=== PATIENT | male | born 1960 | race Caucasian/White ===

== ENCOUNTER 2018-09-15 16:22 | Emergency (ER) | payer OTHER, BC, SELFPAY ==
[2018-09-15 16:23] VITALS: BP 157/90; PULSE 60; RESP 18; TEMP 36.7; O2SAT 97; BMI 30.6
--- NOTE | 2018-09-15 16:38 | CT_ITS ---
STUDY: CT BRAIN WITHOUT CONTRAST REASON FOR EXAM: Male, 58 years old. Increasing headache for 2 months. Prior history of CVA and 2016. RADIATION DOSAGE (If Supplied By Facility): CTDIvol = ( 44.99 ) mGy, DLP = ( 846.73 ) mGycm TECHNIQUE: Transaxial CT imaging of the brain was performed without administration of intravenous contrast material. Individualized dose optimization techniques were used for this CT. COMPARISON: None. FINDINGS: Normal soft tissue structures. Normal calvarium. Normal size ventricles and extra-axial spaces for the patient's age. Normal white matter tracts of the cerebral hemispheres. 1 infarct inferior to the anterior horn of the right lateral ventricle Normal brainstem. Normal cerebellum. There is no intracranial hemorrhage. There are no findings of an acute ischemic infarction. Normal visualized paranasal sinuses. CT/Brain/Head without Contrast IMPRESSION: No acute intracranial findings. Negative for hemorrhage, hematoma or mass density. Negative for demarcation of the new nonhemorrhagic infarct zone. Minimal involutional changes. 1 old lacunar infarcts inferior to the anterior horn of the right lateral ventricle which is probably in the colliculus of the caudate nucleus or cingulate gyrus. Normal paranasal sinuses and temporal bones. Electronically Signed: Michaelle Price MD at 17:29 EST , Service support ,
--- NOTE | 2018-09-15 16:39 | ED.VISSUMM ---
- ER Visit Summary Date of Service: 09/15/18 Chief Complaint: Headache History of Present Illness: The patient is a 58 M who presents to the emergency department with approximately 1.5 months of a headache. He describes it as a left-sided parietal region and sometimes pressure sometimes sharp sometimes both. He states today it is both. He states that the left side of his face below his eye and onto the cheek and chin feels duller than the right. He denies any head trauma. He denies any sinus issues. She denies any recent URIs. He is on Eliquis for history of A. fib as well as 3 years ago had a right-sided stroke with left-sided deficits. He received TPA and had good improvement of his deficits. He has a primary care physician he states in [place] and his neurologist is with [facility] in [place]. No recent falls. Denies hitting his head. He is tried Excedrin Migraine and Tylenol with minimal to no relief. Patient notes his blood pressure is elevated for him. Physical Examination: Afebrile vital signs are stable blood pressure 157/90 Gen: Well-nourished well-developed Head: Normocephalic atraumatic Eyes: Perrl EOMI ENT: TMs clear no rhinorrhea moist mucous membranes Neck: Supple no lymphadenopathy no JVD nontender CVS: Regular rate rhythm no murmurs normal S1-S2 Respiratory: No distress clear to auscultation bilaterally chest nontender Abdomen: Soft nontender nondistended normal bowel sounds no masses Back: Nontender Extremity: Nontender no edema Skin: Normal color no rash Neuro: alert orientated ?3 CN II-XII intact normal strength reflexes gait cerebellar patient reports dullness to touch on the left V2 V3 region Psych: Normal affect normal mood Test Results: CT the brain shows no acute findings. CBC and chemistries were normal. Emergency Department Course and Treatment: Patient received Toradol and Imitrex. He states that the pain in the parietal region of his head is better but not fully resolved. Patient has an appointment in November with his neurologist in the [facility]. He is now living down here. I will provide him with local neurology. I will write for a few Toradol. Patient does note that the pain is not severe on most days so even though he is on Eliquis as long as he is not taking the Toradol regularly I think this would be okay to use. Impression: 1. Headache This note was generated with [employer] dictation software. It may contain incorrect words, spelling, and punctuation that were not noted in review of the chart prior to signing ED Disposition - Plan for ED Patient: Disposition: Home or Assisted Living Instructions: ED Cephalgia Unspecified Prescriptions: Ketorolac [Toradol] 10 mg PO Q6H PRN #12 tab PRN Reason: Headache Referrals: Jose De Jesus Ruiz MD [STAFF PHYSICIAN] - (call in the am to arrange follow up)
--- NOTE | 2018-09-15 16:42 | ED.DCSUM_ITS ---
- ER Visit Summary Date of Service: 09/15/18 Chief Complaint: Headache History of Present Illness: The patient is a 58 M who presents to the emergency department with approximately 1.5 months of a headache. He describes it as a left-sided parietal region and sometimes pressure sometimes sharp sometimes bot h. He states today it is both. He states that the left side of his face below his eye and onto the cheek and chin feels duller than the right. He denies any head trauma. He denies any sinus issues. She denies any recent URIs. He is on Eliquis for history of A. fib as well as 3 years ago had a right-sided stroke with left-sided deficits. He received TPA and had good improvement of his deficits. He has a primary care physician he states in [place] and his neurologist is with [facility] in [place]. No recent falls. Denies hitting his head. He is tried Excedrin Migraine and Tylenol with minimal to no relief. Patient notes his blood pressure is elevated for him. Physical Examination: Afebrile vital signs are stable blood pressure 157/90 Gen: Well-nourished well-developed Head: Normocephalic atraumatic Eyes: Perrl EOMI ENT: TMs clear no rhinorrhea moist mucous membranes Neck: Supple no lymphadenopathy no JVD nontender CVS: Regular rate rhythm no murmurs normal S1-S2 Respiratory: No distress clear to auscultation bilaterally chest nontender Abdomen: Soft nontender nondistended normal bowel sounds no masses Back: Nontender Extremity: Nontender no edema Skin: Normal color no rash Neuro: alert orientated ?3 CN II-XII intact normal strength reflexes gait cerebellar patient reports dullness to touch on the left V2 V3 region Psych: Normal affect normal mood Test Results: CT the brain shows no acute findings. CBC and chemistries were normal. Emergency Department Course and Treatment: Patient received Toradol and Imitrex. He states that the pain in the parietal region of his head is better but not fully resolved. Patient has an appointment in November with his neurologist in the [facility]. He is now living down here. I will provide him with local neurology. I will write for a few Toradol. Patient does note that the pain is not severe on most days so even though he is on Eliquis as long as he is not taking the Toradol regularly I think this would be okay to use. Impression: 1. Headache This note was generated with [employer] dictation software. It may contain incorrect words, spelling, and punctuation that were not noted in review of the chart prior to signing ED Disposition - Plan for ED Patient: Disposition: Home or Assisted Living Instructions: ED Cephalgia Unspecified Prescriptions: Ketorolac [Toradol] 10 mg PO Q6H PRN #12 tab PRN Reason: Headache Referrals: Jose De Jesus Ruiz MD [STAFF PHYSICIAN] - (call in the am to arrange follow up)
[2018-09-15 17:08] LABS: Anion Gap 10 (5-15); BUN 15 mg/dL (7-18); BUN/Creat Ratio 14.9 RATIO (10-20); Calcium,Total 8.8 mg/dL (8.5-10.1); Chloride 113 mmol/L (98-107); Creatinine, Serum 1.01 mg/dL (0.70-1.30); EST Glomerular Filtration Rate 80 mL/min (>60); Est Glom Filt Rate - Afr Amer 97 mL/min (>60); Estimated Creatinine Clearance 85.37 ml/min; Glucose 129 mg/dL (74-106); Potassium 3.5 mmol/L (3.5-5.1); Sodium Level 143 mmol/L (136-145)
[2018-09-15 17:11] LABS: Absolute Lymphocyte Count 2.06 X10^3/ul (0.83-4.51); Absolute Neutrophil Count 3.5 X10^3/uL (2.0-7.7); Basophil# 0.02 X10^3/uL; Basophil% 0.3 % (0-1); Eosinophil# 0.09 X10^3/uL; Eosinophils% 1.4 % (0-5); Hematocrit 42.5 % (40-54); Lymphocyte # 2.06 X10^3/ul (4.0); Lymphocyte % 32.7 % (19-41); Mean Corp Hgb Conc 35.3 g/gl (32-36); Mean Corpuscular Hgb 32.2 pg (27.0-32.0); Mean Corpuscular Volume 91.2 fL (80-94); Mean Platelet Vol. 10.6 fl (6.2-12.0); Monocyte# 0.56 X10^3/uL; Monocyte% 8.9 % (0-10); Neutrophil # 3.53 X10^3/uL (2.7-7.7); Neutrophil % 56.1 % (47-70); Platelet Count 182 K/mm3 (150-450); RBC Distribution Width CV 12.3 % (11.6-14.6); RBC Distribution Width SD 40.5 fl (35.1-43.9); Red Blood Count 4.66 M/mm3 (4.6-6.2); White Blood Count 6.3 K/mm3 (4.4-11.0)
[2018-09-15 17:23] LABS: POSITIVE COUNT NO; POSITIVE DIFFERENTIAL NO; POSITIVE MORPHOLOGY NO
[2018-09-15] MEDS: Ketorolac 30 MG/ML Syringe IV (18:02)
[2018-09-15] MEDS: SUMAtriptan 6 MG/0.5 ML Vial SC (18:04)
[2018-09-15 20:02] VITALS: BP 163/85; PULSE 56; RESP 16; O2SAT 97
== END 2018-09-15 20:03 | disposition home or self-care (01) ==
PROVIDERS: Emergency Provider Emergency Medicine
DX: R51 Headache (principal); I48.91 Unspecified atrial fibrillation; Z79.01 Long term (current) use of anticoagulants; I69.354 Hemiplegia and hemiparesis following cerebral infarction affecting left non-dominant side; Z87.891 Personal history of nicotine dependence
CPT/HCPCS: 70450; 80048; 85025; 96372; 96374; 99284; A4216; J3030

== ENCOUNTER 2021-09-05 17:00 | Outpatient (RCR) | payer OTHER, BC, SELFPAY ==
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
--- NOTE | 2021-11-12 10:56 | HP.PT.NRP ---
MAYTE BULLOCK was seen in my office for initial evaluation on 08/16/21. The following Plan of Care was established for this patient: Initial Frequency: 2x /Week Initial Duration: 4 Weeks Patient/Client Instruction: Educate patient on: Condition, Plan of Care For the Purpose of:: To decrease pain, To increase ROM, To improve muscle performance and motor function, To improve ability to perform ADL's, To increase tolerance to activity/condition/position, To improve ability of physical actions for home/community/work/leisure, To improve health of tissue, To decrease soft tissue restriction, To increase flexibility/ROM, To prevent re-injury Therapeutic Exercise to Include: Strength training, Endurance training, Postural training, Flexibilty training, Active ROM, Dynamic Lumbar Stabilization For the Purpose of:: To decrease pain, To increase ROM, To improve muscle performance and motor function, To increase tolerance to activity/condition/position, To improve ability of physical actions for home/community/work/leisure, To improve gait and locomotor functions, To improve health of tissue, To decrease soft tissue restriction, To increase flexibility/ROM, To reduce risk of recurrence Functional electric stimulation: Yes TENS: Yes IF ES: Yes Cryotherapy (ice pack, ice massage): Yes Thermo therapy (hot pack): Yes For the Purpose of:: To decrease pain, To improve nutrient delivery to tissue, To increase oxygenation perfusion, To improve health of tissue, To decrease soft tissue restriction This patient was last seen in our office . Pertinent comments regarding their Physical therapy will appear below: Patient seen for PT for back/thoracic pain for DLS AND POSTURAL EX'S THISN IS D/C TO HEP At this point I will be discontinuing this patient from physical therapy. I would be happy to see this patient again in the future if found appropriate by the physician. Thank you! Ross Robles, PT, Cert MDT, OCS Balance/Gait/Functional tests - Balance/Special Test Scores Oswestry Low Back Score: 6
== END 2021-09-05 19:00 | disposition home or self-care (01) ==
LOC: PT 17:00
DX: M47.814 Spondylosis without myelopathy or radiculopathy, thoracic region (principal); M47.26 Other spondylosis with radiculopathy, lumbar region
CPT/HCPCS: 97110; 97162; 97530